=== PATIENT | female | born 1965 | race Caucasian/White ===

== ENCOUNTER → 2023-04-23 | Outpatient (CLI) | payer OTHER, MEDICAID | LOC: M RAD 10:32 | PROVIDERS: ATTEND Family Medicine | DX: R63.4 Abnormal weight loss (principal) ==

== ENCOUNTER 2023-05-22 11:20 | Emergency (ER) | payer MEDICAID, OTHER ==
[~2023-05-22] VITALS: Ht 152.4 cm; Wt 41.6 kg
[2023-05-22] MEDS ORDERED: VENTAER INH (11:36)
[2023-05-22] MEDS ORDERED: ADV250INH INH (11:36)
[2023-05-22] MEDS ORDERED: NS 500 ML IV ONE (12:40)
[2023-05-22 13:44] LABS: BASO # 0.1 10^3/uL (0.0-0.2); BASO % 0.7 % (0.0-1.0); EOS # 0.3 10^3/uL (0.0-0.5); EOS % 3.9 % (0.0-3.0); HEMATOCRIT 40.1 % (36.0-47.0); LYMPH # 1.5 10^3/uL (1.5-5.0); LYMPH % 17.2 % (24.0-44.0); MEAN CORPUSCULAR HEMOGLOBIN 31.1 pg (27.0-33.0); MEAN CORPUSCULAR HGB CONC 32.4 g/dl (32.0-36.5); MEAN CORPUSCULAR VOLUME 95.9 fl (80.0-96.0); MONO # 0.4 10^3/uL (0.0-0.8); MONO % 4.4 % (2.0-8.0); NEUTROPHILS # 6.2 10^3/uL (1.5-8.5); NEUTROPHILS % 73.6 % (36.0-66.0); PLATELET COUNT, AUTOMATED 191 10^3/uL (150-450); RED BLOOD COUNT 4.18 10^6/uL (4.00-5.40); WHITE BLOOD COUNT 8.5 10^3/uL (4.0-10.0)
[2023-05-22 13:56] LABS: INR 1.04; PROTHROMBIN TIME 13.3 SECONDS (12.5-14.5)
[2023-05-22 14:10] LABS: ALBUMIN 3.4 G/DL (3.2-5.2); ALKALINE PHOSPHATASE 71 U/L (46-116); ALT/SGPT 10 U/L (7.0-40); AST/SGOT 11 U/L (<34); BILIRUBIN,DIRECT 0.7 MG/DL (<0.4); BLOOD UREA NITROGEN 15 MG/DL (9-23); CALCIUM LEVEL 8.9 MG/DL (8.5-10.1); CARBON DIOXIDE LEVEL 33 MMOL/L (20-31); CHLORIDE LEVEL 105 MMOL/L (98-107); CK-MB VALUE MASS < 1.0 NG/ML (<3.6); CPK CREATINE PHOSPHOKINASE 66 U/L (34-145); CREATININE FOR GFR 0.68 MG/DL (0.55-1.30); GLOMERULAR FILTRATION RATE > 60.0 (>51); GLUCOSE, FASTING 80 MG/DL (60-100); MB/CK RELATIVE INDEX 1.51 (< OR =4); SODIUM LEVEL 143 MMOL/L (136-145); TOTAL PROTEIN 6.3 G/DL (5.7-8.2)
[2023-05-22 14:12] LABS: THYROID STIMULATING HORMONE 1.443 uIU/ML (0.55-4.78)
[2023-05-22 15:26] LABS: CK-MB VALUE MASS < 1.0 NG/ML (<3.6)
[2023-05-22 15:30] LABS: CPK CREATINE PHOSPHOKINASE 58 U/L (34-145); MB/CK RELATIVE INDEX 1.72 (< OR =4)
[2023-05-22 16:30] VITALS: BP 101/58
[2023-05-22 16:45] VITALS: TEMP 97.6; O2SAT 99
== END 2023-05-22 16:52 | disposition home or self-care (01) ==
LOC: M ED 11:20
DX: R06.02 Shortness of breath (principal); E53.8 Deficiency of other specified B group vitamins; Z87.891 Personal history of nicotine dependence; Z88.5 Allergy status to narcotic agent; Z88.6 Allergy status to analgesic agent; Z88.8 Allergy status to other drugs, medicaments and biological substances; J44.9 Chronic obstructive pulmonary disease, unspecified; Z79.51 Long term (current) use of inhaled steroids

== ENCOUNTER → 2023-06-15 | Outpatient (CLI) | payer OTHER ==
[~2023-06-15] MED LIST: ADV250INH INH; VENTAER INH
[2023-06-15 16:49] LABS: FREE T4 0.98 NG/DL (0.89-1.76); THYROID STIMULATING HORMONE 1.428 uIU/ML (0.55-4.78)
== END ==
LOC: M LAB 15:15
PROVIDERS: ATTEND Internal Medicine Gastroenterology
DX: R19.4 Change in bowel habit (principal); R63.4 Abnormal weight loss

== ENCOUNTER → 2023-06-15 | Outpatient (CLI) | payer OTHER ==
[2023-06-15 16:20] LABS: BASO # 0.1 10^3/uL (0.0-0.2); BASO % 1.2 % (0.0-1.0); EOS # 0.3 10^3/uL (0.0-0.5); EOS % 6.3 % (0.0-3.0); HEMATOCRIT 39.6 % (36.0-47.0); HEMOGLOBIN 12.6 g/dl (12.0-15.5); LYMPH # 1.2 10^3/uL (1.5-5.0); LYMPH % 24.1 % (24.0-44.0); MEAN CORPUSCULAR HEMOGLOBIN 30.6 pg (27.0-33.0); MEAN CORPUSCULAR HGB CONC 31.8 g/dl (32.0-36.5); MEAN CORPUSCULAR VOLUME 96.1 fl (80.0-96.0); MONO # 0.4 10^3/uL (0.0-0.8); MONO % 8.4 % (2.0-8.0); NEUTROPHILS # 2.9 10^3/uL (1.5-8.5); NEUTROPHILS % 59.8 % (36.0-66.0); PLATELET COUNT, AUTOMATED 180 10^3/uL (150-450); RED BLOOD COUNT 4.12 10^6/uL (4.00-5.40); WHITE BLOOD COUNT 4.9 10^3/uL (4.0-10.0)
[2023-06-15 16:48] LABS: ALBUMIN 3.6 G/DL (3.2-5.2); ALKALINE PHOSPHATASE 63 U/L (46-116); ALT/SGPT 13 U/L (7.0-40); AST/SGOT 12 U/L (<34); BILIRUBIN,TOTAL 2.3 MG/DL (0.3-1.2); BLOOD UREA NITROGEN 20 MG/DL (9-23); CALCIUM LEVEL 8.6 MG/DL (8.5-10.1); CARBON DIOXIDE LEVEL 32 MMOL/L (20-31); CHLORIDE LEVEL 104 MMOL/L (98-107); CREATININE FOR GFR 0.72 MG/DL (0.55-1.30); GLOMERULAR FILTRATION RATE > 60.0 (>51); GLUCOSE, FASTING 84 MG/DL (60-100); MAGNESIUM LEVEL 1.6 MG/DL (1.8-2.4); POTASSIUM SERUM 4.1 MMOL/L (3.5-5.1); SODIUM LEVEL 139 MMOL/L (136-145); TOTAL PROTEIN 6.5 G/DL (5.7-8.2)
[2023-06-15 16:50] LABS: TOTAL 25(OH) VITAMIN D 44.8 NG/ML (20.0-100.0); VITAMIN B12 LEVEL 723 PG/ML (211-911)
[2023-06-15 16:55] LABS: FOLATE 23.2 NG/ML (>5.4)
== END ==
LOC: M LAB 15:13
PROVIDERS: ATTEND Family Medicine
DX: E55.9 Vitamin D deficiency, unspecified (principal); K90.9 Intestinal malabsorption, unspecified

== ENCOUNTER → 2023-07-22 | Outpatient (CLI) | payer OTHER | LOC: M WHC 13:06 | PROVIDERS: ATTEND Family Medicine | DX: Z12.31 Encounter for screening mammogram for malignant neoplasm of breast (principal) ==

== ENCOUNTER → 2023-07-22 | Outpatient (CLI) | payer OTHER | LOC: M CARPUL 15:00 | PROVIDERS: ATTEND Family Medicine | DX: I51.7 Cardiomegaly (principal) ==

== ENCOUNTER → 2023-07-26 | Outpatient (CLI) | payer OTHER | LOC: M WHC 07-22 14:38 | PROVIDERS: ATTEND Family Medicine | DX: Z13.820 Encounter for screening for osteoporosis (principal) ==

== ENCOUNTER 2023-08-16 14:24 | Emergency (ER) | payer OTHER, MEDICAID ==
[~2023-08-16] VITALS: Ht 149.9 cm; Wt 40.6 kg
[2023-08-16 14:26] VITALS: BP 120/65; TEMP 97.5; O2SAT 98
== END 2023-08-16 17:35 | disposition left against medical advice (07) ==
LOC: M ED 14:24
DX: Z53.21 Procedure and treatment not carried out due to patient leaving prior to being seen by health care provider (principal)

== ENCOUNTER → 2023-09-13 | Outpatient (CLI) | payer OTHER, MEDICAID | LOC: M WHC 12:40 | PROVIDERS: ATTEND Family Medicine | DX: M81.0 Age-related osteoporosis without current pathological fracture (principal) ==

== ENCOUNTER → 2023-10-14 | Outpatient (CLI) | payer OTHER, MEDICAID ==
[2023-10-14 11:13] LABS: BASO # 0.1 10^3/uL (0.0-0.2); BASO % 1.2 % (0.0-1.0); EOS # 0.5 10^3/uL (0.0-0.5); EOS % 11.6 % (0.0-3.0); HEMOGLOBIN 13.2 g/dl (12.0-15.5); LYMPH # 1.7 10^3/uL (1.5-5.0); MEAN CORPUSCULAR HEMOGLOBIN 30.7 pg (27.0-33.0); MEAN CORPUSCULAR HGB CONC 32.2 g/dl (32.0-36.5); MEAN CORPUSCULAR VOLUME 95.3 fl (80.0-96.0); MONO # 0.3 10^3/uL (0.0-0.8); MONO % 5.8 % (2.0-8.0); NEUTROPHILS # 1.8 10^3/uL (1.5-8.5); NEUTROPHILS % 42.4 % (36.0-66.0); PLATELET COUNT, AUTOMATED 173 10^3/uL (150-450); WHITE BLOOD COUNT 4.3 10^3/uL (4.0-10.0)
[2023-10-14 11:40] LABS: C REACTIVE PROTEIN QUANTITATIV < 0.40 MG/DL (<1.0)
[2023-10-14 11:42] LABS: ALBUMIN 3.6 G/DL (3.2-5.2); ALKALINE PHOSPHATASE 58 U/L (46-116); ALT/SGPT 14 U/L (7.0-40); AST/SGOT 15 U/L (<34); BILIRUBIN,TOTAL 1.8 MG/DL (0.3-1.2); BLOOD UREA NITROGEN 19 MG/DL (9-23); CALCIUM LEVEL 8.9 MG/DL (8.5-10.1); CARBON DIOXIDE LEVEL 32 MMOL/L (20-31); CHLORIDE LEVEL 107 MMOL/L (98-107); CHOLESTEROL LEVEL 152 MG/DL (<200); CREATININE FOR GFR 0.69 MG/DL (0.55-1.30); GLOMERULAR FILTRATION RATE > 60.0 (>51); GLUCOSE, FASTING 86 MG/DL (60-100); HDL CHOLESTEROL 63.2 MG/DL (>40); IRON (FE) 86 UG/DL (50-170); LDL CHOLESTEROL 75.4 MG/DL (<100); MAGNESIUM LEVEL 1.7 MG/DL (1.8-2.4); NON-HDL-C 88.8 MG/DL; POTASSIUM SERUM 3.9 MMOL/L (3.5-5.1); SODIUM LEVEL 141 MMOL/L (136-145); TOTAL IRON BINDING CAPACITY 253 UG/DL (250-425); TRIGLYCERIDES LEVEL 67 MG/DL (<150)
[2023-10-14 11:43] LABS: FERRITIN 63.4 NG/ML (7.3-270.7); TOTAL 25(OH) VITAMIN D 55.3 NG/ML (20.0-100.0)
[2023-10-14 11:44] LABS: FREE T4 0.99 NG/DL (0.89-1.76); THYROID STIMULATING HORMONE 1.671 uIU/ML (0.55-4.78)
[2023-10-14 18:15] LABS: ERYTHROCYTE SEDIMENTATION RATE 3 mm/hr (0-30)
[2023-10-17 13:27] LABS: FOLATE > 24.0 NG/ML (>5.4); VITAMIN B12 LEVEL 801 PG/ML (211-911)
== END ==
LOC: M LAB 10:48
PROVIDERS: ATTEND Family Medicine
DX: G62.9 Polyneuropathy, unspecified (principal)

== ENCOUNTER → 2023-10-18 | Outpatient (CLI) | payer OTHER ==
[2023-10-18 16:02] LABS: FOLATE > 24.0 NG/ML (>5.4); VITAMIN B12 LEVEL 867 PG/ML (211-911)
== END ==
LOC: M LAB 13:43 → M CARPUL 13:43
PROVIDERS: ATTEND Family Medicine
DX: I51.7 Cardiomegaly (principal)

== ENCOUNTER → 2024-08-06 | Outpatient (CLI) | payer OTHER ==
[2024-08-06 11:53] LABS: BASO # 0.1 10^3/uL (0.0-0.2); BASO % 1.3 % (0.0-1.0); EOS # 0.4 10^3/uL (0.0-0.5); EOS % 5.7 % (0.0-3.0); HEMATOCRIT 43.9 % (36.0-47.0); LYMPH # 1.5 10^3/uL (1.5-5.0); LYMPH % 24.1 % (24.0-44.0); MEAN CORPUSCULAR HGB CONC 31.9 g/dl (32.0-36.5); MEAN CORPUSCULAR VOLUME 97.1 fl (80.0-96.0); MONO # 0.3 10^3/uL (0.0-0.8); MONO % 5.2 % (2.0-8.0); NEUTROPHILS # 4.1 10^3/uL (1.5-8.5); NEUTROPHILS % 63.5 % (36.0-66.0); PLATELET COUNT, AUTOMATED 205 10^3/uL (150-450); RED BLOOD COUNT 4.52 10^6/uL (4.00-5.40); WHITE BLOOD COUNT 6.4 10^3/uL (4.0-10.0)
[2024-08-06 12:49] LABS: ALBUMIN 3.5 G/DL (3.2-5.2); ALKALINE PHOSPHATASE 64 U/L (35-104); ALT/SGPT 13 U/L (7.0-40); AST/SGOT 11 U/L (<34); BILIRUBIN,TOTAL 2.7 MG/DL (0.3-1.2); BLOOD UREA NITROGEN 17 MG/DL (9-23); CARBON DIOXIDE LEVEL 30 MMOL/L (20-31); CHLORIDE LEVEL 109 MMOL/L (98-107); CHOLESTEROL LEVEL 153 MG/DL (<200); CHOLESTEROL RISK RATIO 1.89 (<5); CREATININE FOR GFR 0.67 MG/DL (0.55-1.30); GLOMERULAR FILTRATION RATE > 60.0 (>51); GLUCOSE, FASTING 83 MG/DL (60-100); HDL CHOLESTEROL 80.6 MG/DL (>40); LDL CHOLESTEROL 60.4 MG/DL (<100); MAGNESIUM LEVEL 1.8 MG/DL (1.8-2.4); NON-HDL-C 72.4 MG/DL; POTASSIUM SERUM 4.1 MMOL/L (3.5-5.1); SODIUM LEVEL 142 MMOL/L (136-145); TOTAL 25(OH) VITAMIN D 46.7 NG/ML (20.0-100.0); TOTAL PROTEIN 6.1 G/DL (5.7-8.2); TRIGLYCERIDES LEVEL 60 MG/DL (<150); VITAMIN B12 LEVEL 1274 PG/ML (211-911)
== END ==
LOC: M LAB 11:19
PROVIDERS: ATTEND Family Medicine
DX: E61.2 Magnesium deficiency (principal)

== ENCOUNTER → 2025-06-07 | Outpatient (CLI) | payer OTHER ==
[~2025-06-07] MED LIST changes: -ADV250INH INH; +ADVA1AER9 INH
[2025-06-07 12:37] LABS: BASO # 0.1 10^3/uL (0.0-0.2); BASO % 1.2 % (0.0-1.0); EOS # 0.5 10^3/uL (0.0-0.5); EOS % 8.7 % (0.0-3.0); LYMPH # 1.6 10^3/uL (1.5-5.0); LYMPH % 27.9 % (24.0-44.0); MONO # 0.3 10^3/uL (0.0-0.8); MONO % 5.3 % (2.0-8.0); NEUTROPHILS # 3.2 10^3/uL (1.5-8.5); NEUTROPHILS % 56.7 % (36.0-66.0); PLATELET COUNT, AUTOMATED 183 10^3/uL (150-450)
[2025-06-07 13:01] LABS: IRON (FE) 66 UG/DL (50-170)
[2025-06-07 13:02] LABS: ALT/SGPT 14 U/L (7.0-40); AST/SGOT 18 U/L (<34); CALCIUM LEVEL 9.0 MG/DL (8.5-10.1); CARBON DIOXIDE LEVEL 30 MMOL/L (20-31); CHLORIDE LEVEL 107 MMOL/L (98-107); CREATININE FOR GFR 0.66 MG/DL (0.55-1.30); GLOMERULAR FILTRATION RATE > 90.0 (>51); PERCENT SATURATION 22.5 % (13.2-45.0); POTASSIUM SERUM 4.0 MMOL/L (3.5-5.1); SODIUM LEVEL 144 MMOL/L (136-145)
[2025-06-07 13:03] LABS: FREE T4 1.01 NG/DL (0.89-1.76); TOTAL 25(OH) VITAMIN D 16.4 NG/ML (20.0-100.0)
[2025-06-07 13:04] LABS: VITAMIN B12 LEVEL 428 PG/ML (211-911)
== END ==
LOC: M LAB 11:40
PROVIDERS: ATTEND Family Medicine
DX: Z00.00 Encounter for general adult medical examination without abnormal findings (principal); E61.0 Copper deficiency; E55.9 Vitamin D deficiency, unspecified

== ENCOUNTER → 2025-08-05 | Outpatient (CLI) | payer OTHER | LOC: M WHC 12:52 | PROVIDERS: ATTEND Family Medicine | DX: Z12.31 Encounter for screening mammogram for malignant neoplasm of breast (principal); Z98.82 Breast implant status; R92.8 Other abnormal and inconclusive findings on diagnostic imaging of breast ==

== ENCOUNTER → 2025-08-07 | Outpatient (CLI) | payer OTHER ==
[~2025-08-07] MED LIST changes: +PROHANCE 279.3MG/ML 5ML VIAL ONE
== END ==
LOC: M PLAIMG 10:59
PROVIDERS: ATTEND Family Medicine
DX: G93.5 Compression of brain (principal); M50.221 Other cervical disc displacement at C4-C5 level; M48.02 Spinal stenosis, cervical region; M47.812 Spondylosis without myelopathy or radiculopathy, cervical region; J01.00 Acute maxillary sinusitis, unspecified
CPT/HCPCS: 70553; 72156; A9576